=== PATIENT | male | born 1945 | race Caucasian/White ===

== ENCOUNTER → 2020-05-25 | Outpatient (RCR) | payer BC, MEDICARE ==
[~2020-05-25] MED LIST: PILOCARPINE HC7.5 MG PO
== END ==
LOC: PT 05-21 13:44
PROVIDERS: ATTEND Internal Medicine
DX: I69.351 Hemiplegia and hemiparesis following cerebral infarction affecting right dominant side (principal); M62.81 Muscle weakness (generalized); R26.2 Difficulty in walking, not elsewhere classified

== ENCOUNTER 2020-06-22 08:53 | Outpatient (RCR) | payer MEDICARE, BC | END 2020-06-25 | LOC: PT 08:53 | PROVIDERS: ATTEND Internal Medicine | DX: I69.351 Hemiplegia and hemiparesis following cerebral infarction affecting right dominant side (principal) | CPT/HCPCS: 97139 ==

== ENCOUNTER → 2020-11-02 | Outpatient (CLI) | payer OTHER ==
[~2020-11-02] MED LIST changes: +COVID-19 VACC, MRNA(MODERNA)/PF 100 MCG/0.5 ML VIAL IM ONE
== END ==
LOC: VACCPMC 18:00
DX: Z23 Encounter for immunization (principal); Z20.822 Contact with and (suspected) exposure to COVID-19

== ENCOUNTER → 2020-11-29 | Outpatient (CLI) | payer OTHER ==
[~2020-11-29] MED LIST changes: -COVID-19 VACC, MRNA(MODERNA)/PF 100 MCG/0.5 ML VIAL IM ONE
== END | DRG 951 ==
LOC: VACCPMC 10:13
DX: Z23 Encounter for immunization (principal); Z20.822 Contact with and (suspected) exposure to COVID-19
CPT/HCPCS: 0012A; 91301

== ENCOUNTER → 2021-08-28 | Outpatient (CLI) | payer OTHER, BC, MEDICARE ==
[~2021-08-28] MED LIST changes: +COVID-19 VACC, MRNA(MODERNA)/PF 100 MCG/0.5 ML VIAL IM ONE
== END ==
LOC: VACCPMC 10:00
DX: Z23 Encounter for immunization (principal); Z20.822 Contact with and (suspected) exposure to COVID-19
CPT/HCPCS: 91301

== ENCOUNTER 2024-08-23 19:00 | Emergency (ER) | payer MEDICARE, BC ==
[~2024-08-23] VITALS: Ht 188 cm; Wt 86.2 kg
[~2024-08-23 19:00] MED LIST changes: +ASPIRIN EC81 MG PO; +CITRACAL + D M1 EACH PO; -COVID-19 VACC, MRNA(MODERNA)/PF 100 MCG/0.5 ML VIAL IM ONE; +FLOMAX0.4 MG PO; +MEN'S 50 PLUS1 EACH PO
[2024-08-23 19:07] VITALS: TEMP 98.7
[2024-08-23] MEDS ORDERED: SODIUM CHLORIDE FLUSH 10 ML SYR IV PRN (19:15)
[2024-08-23] MEDS: MECLIZINE HCL 12.5 MG TAB PO ONE (19:19)
[2024-08-23 19:20] LABS: HEMATOCRIT 30.7 % (38.2-49.6); HEMOGLOBIN 9.8 g/dL (14.0-18.0); LYMPHOCYTES # (AUTO) 0.4 (1.0-3.2); LYMPHOCYTES % 13.9 % (18.0-39.1); MEAN CORPUSCULAR HGB CONC 31.9 g/dL (31-35); MEAN CORPUSCULAR VOLUME 97.2 fL (81-99); MONOCYTES # (AUTO) 0.3 (0.2-0.8); MONOCYTES % 10.6 % (4.4-11.3); NEUTROPHILS # (AUTO) 2.3 (2.1-6.9); NEUTROPHILS % 74.2 % (38.7-80.0); PLATELET COUNT 122 x10e3/uL (140-360); RED BLOOD COUNT 3.16 x10e6/uL (4.3-5.7); WHITE BLOOD COUNT 3.03 x10e3/uL (4.8-10.8)
[2024-08-23 19:29] LABS: INR 0.93; PROTHROMBIN TIME 12.9 seconds (11.9-14.5)
[2024-08-23] MEDS: SODIUM CHLORIDE 0.9% 1000ML 1,000 ML IV ONE (19:32)
[2024-08-23] MEDS: ONDANSETRON HCL INJ 2MG/ML 2ML 2 MG/ML VIAL IV STA (19:32)
[2024-08-23 19:37] LABS: ALBUMIN 3.7 g/dL (3.5-5.0); ANION GAP 14.1 mmol/L (8-16); BILIRUBIN,TOTAL 1.7 mg/dL (0.2-1.2); CALCIUM 9.2 mg/dL (8.4-10.2); CREATININE, SERUM 1.1 mg/dL (0.72-1.25); POTASSIUM 4.1 mmol/L (3.5-5.1); TOTAL PROTEIN 7.3 g/dL (6.5-8.1)
[2024-08-23 20:07] LABS: TROPONIN I 0.005 ng/mL (0-0.300)
[2024-08-23 20:19] LABS: BILIRUBIN,URINE NEGATIVE (NEGATIVE); CLARITY,URINE CLEAR (CLEAR); COLOR,URINE YELLOW (YELLOW); GLUCOSE, URINE NEGATIVE (NEGATIVE); KETONES,URINE NEGATIVE (NEGATIVE); LEUKOCYTE ESTERASE ,URINE NEGATIVE (NEGATIVE); NITRITE,URINE NEGATIVE (NEGATIVE); PH,URINE 8.5 (5 - 7); PROTEIN,URINE DIPSTICK NEGATIVE (NEGATIVE); URINE UROBILINOGEN 0.2 mg/dL (0.2 - 1)
[2024-08-23 20:33] LABS: BACTERIA,URINE MODERATE /HPF
[2024-08-23] MEDS: HYDRALAZINE HCL 20 MG/ML VIAL IV STA (20:47)
[2024-08-23 21:11] VITALS: PULSE 73; RESP 16
[2024-08-23] MEDS ORDERED: MECLIZINE HCL25 MG PO (21:50)
[2024-08-23 22:16] VITALS: BP 164/84; PULSE 73; RESP 16; O2SAT 99
== END 2024-08-23 22:10 | disposition home or self-care (01) ==
LOC: ER 19:06
DX: H81.10 Benign paroxysmal vertigo, unspecified ear (principal); R11.2 Nausea with vomiting, unspecified; R51.9 Headache, unspecified; R94.31 Abnormal electrocardiogram [ECG] [EKG]
CPT/HCPCS: 36415; 70450; 71045; 80053; 81001; 83880; 84484; 85025; 85610; 85730; 93005; 94760; 99284; J0360; J2405; J7030; J8597

== ENCOUNTER → 2024-12-23 | Day surgery (SDC) | payer MEDICARE, BC ==
[2024-12-21 09:46] LABS: BASOPHILS % 0.9 % (0.0-1.0); HEMATOCRIT 33.4 % (38.2-49.6); HEMOGLOBIN 11.2 g/dL (14.0-18.0); LYMPHOCYTES # (AUTO) 0.6 (1.0-3.2); LYMPHOCYTES % 16.5 % (18.0-39.1); MEAN CORPUSCULAR HEMOGLOBIN 31.6 pg (28-32); MEAN CORPUSCULAR HGB CONC 33.5 g/dL (31-35); MEAN CORPUSCULAR VOLUME 94.4 fL (81-99); MONOCYTES # (AUTO) 0.4 (0.2-0.8); NEUTROPHILS # (AUTO) 2.5 (2.1-6.9); NEUTROPHILS % 70.3 % (38.7-80.0); PLATELET COUNT 177 x10e3/uL (140-360); RED BLOOD COUNT 3.54 x10e6/uL (4.3-5.7); RED CELL DISTRIBUTION WIDTH 12.6 % (11.7-14.4); WHITE BLOOD COUNT 3.51 x10e3/uL (4.8-10.8)
[2024-12-21 10:05] LABS: ANION GAP 14.3 mmol/L (8-16); CREATININE, SERUM 1.03 mg/dL (0.72-1.25); POTASSIUM 4.3 mmol/L (3.5-5.1)
[~2024-12-23] MED LIST changes: +ACETAMINOPHEN 1000 MG/100 ML 100 ML IV ONE; +DEXAMETHASONE SOD PHOS INJ 4 MG/ML SDV ONE; +FENTANYL CITRATE/PF 100MCG/2 ML INJ ONE; +LIDOCAINE HCL 2% LOCAL INJ 5 ML SDV VIAL INJ ONE; +MECLIZINE HCL25 MG PO; +ONDANSETRON HCL INJ 2MG/ML 2ML 2 MG/ML VIAL ONE; +PHENYLEPHRINE HCL 1% 10 MG/ML VIAL ONE; +PROPOFOL IV EMULSION 10 MG/ML 20 ML VIAL ONE; +SEVOFLURANE INHAL SOLN 250 ML PEN BTL ONE
[2024-12-23] MEDS: LACTATED RINGER'S 1,000 ML ONE (07:35)
[2024-12-23] MEDS: CEFAZOLIN SODIUM 2 GM ONE (07:35)
[2024-12-23 10:40] VITALS: TEMP 97
[2024-12-23 11:35] VITALS: BP 166/87; PULSE 61; RESP 18; O2SAT 96
== END | disposition home or self-care (01) ==
LOC: OR 06:41
PROVIDERS: ATTEND Podiatrist Foot Surgery
DX: M20.41 Other hammer toe(s) (acquired), right foot (principal); M89.9 Disorder of bone, unspecified; C61 Malignant neoplasm of prostate; I49.8 Other specified cardiac arrhythmias; Z01.810 Encounter for preprocedural cardiovascular examination; Z01.812 Encounter for preprocedural laboratory examination; Z01.818 Encounter for other preprocedural examination; Z79.82 Long term (current) use of aspirin; Z86.73 Personal history of transient ischemic attack (TIA), and cerebral infarction without residual deficits
CPT/HCPCS: 28285; 36415; 71046; 80048; 85025; 93005; C1713; J0131; J1100; J2003; J2371; J2405; J2704; J7121

== ENCOUNTER 2025-02-04 14:12 | Emergency (ER) | payer MEDICARE, BC ==
[~2025-02-04] VITALS: Ht 188 cm; Wt 79.4 kg
[~2025-02-04 14:12] MED LIST changes: -ACETAMINOPHEN 1000 MG/100 ML 100 ML IV ONE; -DEXAMETHASONE SOD PHOS INJ 4 MG/ML SDV ONE; -FENTANYL CITRATE/PF 100MCG/2 ML INJ ONE; -LIDOCAINE HCL 2% LOCAL INJ 5 ML SDV VIAL INJ ONE; -ONDANSETRON HCL INJ 2MG/ML 2ML 2 MG/ML VIAL ONE; -PHENYLEPHRINE HCL 1% 10 MG/ML VIAL ONE; -PROPOFOL IV EMULSION 10 MG/ML 20 ML VIAL ONE; -SEVOFLURANE INHAL SOLN 250 ML PEN BTL ONE
[2025-02-04 16:21] VITALS: PULSE 75; RESP 16; TEMP 98.2; O2SAT 98
== END 2025-02-04 16:35 | disposition home or self-care (01) ==
LOC: ER 15:04
DX: S00.83XA Contusion of other part of head, initial encounter (principal); S51.812A Laceration without foreign body of left forearm, initial encounter; W11.XXXA Fall on and from ladder, initial encounter; Y92.89 Other specified places as the place of occurrence of the external cause; Z86.73 Personal history of transient ischemic attack (TIA), and cerebral infarction without residual deficits; Z85.46 Personal history of malignant neoplasm of prostate
CPT/HCPCS: 70450; 72125; 99284

== ENCOUNTER 2025-05-24 10:00 | Outpatient (RCR) | payer MEDICARE, BC | END 2025-05-25 | LOC: PT 10:00 | PROVIDERS: ATTEND Internal Medicine | DX: M21.371 Foot drop, right foot (principal) ==

== ENCOUNTER 2025-06-22 13:51 | Outpatient (RCR) | payer MEDICARE, BC | END 2025-06-25 | LOC: PT 13:51 | PROVIDERS: ATTEND Internal Medicine | DX: M21.371 Foot drop, right foot (principal) ==

== ENCOUNTER 2025-07-10 09:00 | Outpatient (RCR) | payer MEDICARE, BC | END 2025-07-25 | LOC: PT 09:00 | PROVIDERS: ATTEND Internal Medicine | DX: M21.371 Foot drop, right foot (principal) ==